=== PATIENT | female | born 1995 | race Two or more races ===

== ENCOUNTER 2023-04-04 04:19 | Emergency (ER) | payer OTHER ==
[~2023-04-04] VITALS: Ht 165.1 cm; Wt 60.8 kg
== END 2023-04-04 08:15 | disposition home or self-care (01) ==
LOC: ER 04:19
DX: J03.90 Acute tonsillitis, unspecified (principal)

== ENCOUNTER 2023-05-30 12:34 | Emergency (ER) | payer OTHER ==
[~2023-05-30] VITALS: Ht 165.1 cm; Wt 56.7 kg
[2023-05-30 14:05] LABS: PH,URINE 5.5 (5.0-8.0); URINE APPEARANCE Clear; URINE BILIRRUBIN Negative (NEGATIVE); URINE BLOOD Negative; URINE COLOR Yellow; URINE GLUCOSE Negative (NEGATIVE); URINE LEUKOCYTE Small; URINE NITRATE Negative; URINE PROTEIN 30 (NEGATIVE)
[2023-05-30 14:05] LABS: HEMATOCRIT 35.8 % (36.0-45.00); MEAN CORPUSCULAR HEMOGLOBIN 24.1 pg (27.00-32.0); MEAN CORPUSCULAR HGB CONC 33.5 g/dl (32.0-36.0); PLATELET COUNT 212 K/uL (150-450); RED BLOOD COUNT 4.98 M/uL (4.00-6.00)
[2023-05-30 14:09] LABS: URINE BACTERIA 1718.6 uL (0.0-1933); URINE EPITHELIAL CELLS 47.2 uL (0.0-38.8); URINE RBC 6.3 uL (0.0-20.8); URINE WBC 51.7 uL (0.0-23.2)
[2023-05-30 14:39] LABS: CALCIUM 9.3 mg/dL (8.5-10.1); CREATININE SERUM 0.57 mg/dL (0.55-1.02); GFR 126.3; POTASSIUM 3.76 mEq/L (3.5-5.1)
[2023-05-30 14:46] LABS: URINE CRYSTALS NEGATIVE /HPF; URINE YEAST NEGATIVE /hpf
[2023-05-30 14:47] LABS: URINE MUCUS HEAVY
== END 2023-05-30 15:45 | disposition home or self-care (01) ==
LOC: ER 12:34
PROVIDERS: General Practice
DX: R11.10 Vomiting, unspecified (principal)

== ENCOUNTER → 2023-06-22 | Emergency (ER) | payer OTHER ==
[~2023-06-22] VITALS: Ht 167.6 cm; Wt 52.2 kg
== END | disposition home or self-care (01) ==
LOC: ER 18:34
DX: Z53.21 Procedure and treatment not carried out due to patient leaving prior to being seen by health care provider (principal)

== ENCOUNTER 2023-06-30 23:47 | Emergency (ER) | payer OTHER ==
[~2023-06-30] VITALS: Ht 165.1 cm; Wt 57.2 kg
[2023-07-01 02:53] LABS: PH,URINE 6.5 (5.0-8.0); URINE APPEARANCE Cloudy; URINE BILIRRUBIN Negative (NEGATIVE); URINE BLOOD Negative; URINE COLOR Yellow; URINE GLUCOSE Negative (NEGATIVE); URINE LEUKOCYTE Trace; URINE NITRATE Negative; URINE PROTEIN Negative (NEGATIVE)
[2023-07-01 02:56] LABS: URINE BACTERIA 202.8 uL (0.0-1933); URINE EPITHELIAL CELLS 30.2 uL (0.0-38.8); URINE RBC 2.8 uL (0.0-20.8); URINE WBC 9.4 uL (0.0-23.2)
[2023-07-01 03:27] LABS: HEMATOCRIT 31.8 % (36.0-45.00); HEMOGLOBIN 10.6 g/dL (12.0-15.00); MEAN CELL VOLUME 73.5 fL (80.00-100.00); MEAN CORPUSCULAR HEMOGLOBIN 24.4 pg (27.00-32.0); MEAN CORPUSCULAR HGB CONC 33.2 g/dl (32.0-36.0); PLATELET COUNT 236 K/uL (150-450); RED BLOOD COUNT 4.32 M/uL (4.00-6.00); RED CELL DISTRIBUTION WIDTH 18.6 % (11.5-14.5)
== END 2023-07-01 04:29 ==
LOC: ER 23:47
PROVIDERS: General Practice
DX: R10.2 Pelvic and perineal pain (principal); Z33.1 Pregnant state, incidental

== ENCOUNTER 2023-09-01 05:46 | Emergency (ER) | payer OTHER ==
[~2023-09-01] VITALS: Ht 162.6 cm; Wt 52.2 kg
[2023-09-01] MEDS ORDERED: PROMETHAZINE HCL 50 MG/ML AMPUL IM STA (06:27)
[2023-09-01] MEDS ORDERED: FAMOTIDINE/PF 20 MG/2 ML VIAL IV PUSH STA (06:27)
[2023-09-01] MEDS ORDERED: DEXTROSE 5 % AND 0.9 % NACL 1,000 ML IV ONE (06:30)
[2023-09-01 08:00] LABS: HEMOGLOBIN 11.6 g/dL (12.0-15.00); MEAN CELL VOLUME 71.8 fL (80.00-100.00); MEAN CORPUSCULAR HEMOGLOBIN 23.9 pg (27.00-32.0); MEAN CORPUSCULAR HGB CONC 33.3 g/dl (32.0-36.0); RED BLOOD COUNT 4.87 M/uL (4.00-6.00); RED CELL DISTRIBUTION WIDTH 16.5 % (11.5-14.5)
[2023-09-01 08:22] LABS: ALBUMIN 4.1 gm/dL (3.4-5.0); BILIRUBIN TOTAL 0.68 mg/dL (0.3-1.2); CALCIUM 9.4 mg/dL (8.5-10.1); CREATININE SERUM 0.77 mg/dL (0.55-1.02); GFR 89.26; POTASSIUM 3.53 mEq/L (3.5-5.1); TOTAL PROTEIN 8.1 gm/dL (6.4-8.2)
[2023-09-01 08:35] LABS: PLATELET COUNT 172 K/uL (150-450)
[2023-09-01] MEDS ORDERED: ONDANSETRON HCL 2 MG/ML VIAL IV ONE (09:15)
== END 2023-09-01 11:13 | disposition home or self-care (01) ==
LOC: ER 05:46
PROVIDERS: General Practice
DX: R11.10 Vomiting, unspecified (principal); E86.0 Dehydration

== ENCOUNTER 2023-09-26 14:39 | Emergency (ER) | payer OTHER ==
[~2023-09-26] VITALS: Ht 152.4 cm; Wt 54.4 kg
[2023-09-26] MEDS ORDERED: KETOROLAC TROMETHAMINE 60 MG VIAL IM STA (16:02)
[2023-09-26 16:21] LABS: PH,URINE 5.5 (5.0-8.0); URINE APPEARANCE Cloudy; URINE BILIRRUBIN Negative (NEGATIVE); URINE BLOOD Negative; URINE COLOR Yellow; URINE GLUCOSE Negative (NEGATIVE); URINE LEUKOCYTE Moderate; URINE NITRATE Negative; URINE PROTEIN Trace (NEGATIVE); URINE UROBILINOGEN 0.2 E.U./dl
[2023-09-26 16:22] LABS: URINE BACTERIA 6575.7 uL (0.0-1933); URINE EPITHELIAL CELLS 113.1 uL (0.0-38.8); URINE RBC 5.3 uL (0.0-20.8); URINE WBC 36.1 uL (0.0-23.2)
[2023-09-26 16:33] LABS: HEMATOCRIT 35.3 % (36.0-45.00); HEMOGLOBIN 11.7 g/dL (12.0-15.00); MEAN CELL VOLUME 70.9 fL (80.00-100.00); MEAN CORPUSCULAR HEMOGLOBIN 23.5 pg (27.00-32.0); MEAN CORPUSCULAR HGB CONC 33.2 g/dl (32.0-36.0); PLATELET COUNT 188 K/uL (150-450); RED BLOOD COUNT 4.98 M/uL (4.00-6.00); RED CELL DISTRIBUTION WIDTH 17.9 % (11.5-14.5)
[2023-09-26 16:58] LABS: URINE MUCUS MODERATE
[2023-09-26 17:24] LABS: CALCIUM 9.5 mg/dL (8.5-10.1); CREATININE SERUM 0.68 mg/dL (0.55-1.02); GFR 103.03; POTASSIUM 3.71 mEq/L (3.5-5.1)
== END 2023-09-26 19:09 | disposition home or self-care (01) ==
LOC: ER 14:39
PROVIDERS: General Practice
DX: O34.80 Maternal care for other abnormalities of pelvic organs, unspecified trimester (principal); N83.291 Other ovarian cyst, right side

== ENCOUNTER 2024-02-14 19:37 | Emergency (ER) | payer OTHER ==
[~2024-02-14] VITALS: Ht 165.1 cm; Wt 49.9 kg
[~2024-02-14 19:37] MED LIST: KETO10TA2 PO
[2024-02-14] MEDS ORDERED: HYOSCYAMINE SULFATE 0.125 MG TAB.SUBL ONE (21:26)
[2024-02-14] MEDS ORDERED: KETOROLAC TROMETHAMINE 30 MG VIAL ONE (21:26)
[2024-02-14] MEDS ORDERED: FAMOtidine 200mg/20ml VIAL ONE (21:27)
[2024-02-14] MEDS ORDERED: 0.9 % SODIUM CHLORIDE 1,000 ML IV ONE (21:30)
[2024-02-14] MEDS ORDERED: FAMOtidine 10 MG/ML (4ML VIAL) IV PUSH ONE (21:30)
[2024-02-14] MEDS ORDERED: SUCRALFATE 1 G TABLET PO ONE (21:30)
[2024-02-14] MEDS ORDERED: KETOROLAC TROMETHAMINE 15 MG VIAL IV ONE (21:30)
[2024-02-14] MEDS ORDERED: HYOSCYAMINE SULFATE 0.125 MG TAB.SUBL SL ONE (21:30)
[2024-02-14 22:09] LABS: ALBUMIN 3.7 gm/dL (3.4-5.0); ALKALINE PHOSPHATASE 57 U/L (50-136); ALT/SGPT 23 U/L (12-78); AMYLASE 52 U/L (25-115); ANION GAP 10 (10.0-20.0); AST/SGOT 17 U/L (15-37); BILIRUBIN TOTAL 0.74 mg/dL (0.3-1.2); BLOOD UREA NITROGEN 12 mg/dL (7-18); BUN CREA RATIO 18 (7.0-25.0); CALCIUM 8.9 mg/dL (8.5-10.1); CARBON DIOXIDE 29 mEq/L (21-32); CHLORIDE 109 mmol/L (98-107); CREATININE SERUM 0.66 mg/dL (0.55-1.02); GFR 105.88; GLOBULINA 3.7 G/DL (2.4-3.5); GLUCOSE FASTING 90 mg/dL (65-100); LIPASE 24 U/L (13-75); OSMOLALITY SERUM 286 MOSM/KG (275-295); POTASSIUM 3.61 mEq/L (3.5-5.1); SODIUM 144 mmol/L (136-145); TOTAL PROTEIN 7.4 gm/dL (6.4-8.2)
[2024-02-14 22:09] LABS: HEMATOCRIT 37.3 % (36.0-45.00); HEMOGLOBIN 12.7 g/dL (12.0-15.00); MEAN CELL VOLUME 77.5 fL (80.00-100.00); MEAN CORPUSCULAR HEMOGLOBIN 26.3 pg (27.00-32.0); PLATELET COUNT 160 K/uL (150-450); RED BLOOD COUNT 4.82 M/uL (4.00-6.00); RED CELL DISTRIBUTION WIDTH 16.6 % (11.5-14.5)
[2024-02-14 22:15] LABS: HCG QUANTITATIVE < 1 mUI/mL (1-3)
== END 2024-02-15 04:13 | disposition home or self-care (01) ==
LOC: ER 19:38
PROVIDERS: General Practice
DX: K29.70 Gastritis, unspecified, without bleeding (principal); R10.9 Unspecified abdominal pain
CPT/HCPCS: 36415; 76700; 96365; 96366; 99284; J1885; J3490; J7030

== ENCOUNTER 2024-04-07 09:12 | Emergency (ER) | payer OTHER ==
[~2024-04-07] VITALS: Ht 165.1 cm; Wt 59.0 kg
[2024-04-07] MEDS ORDERED: KETOROLAC TROMETHAMINE 60 MG VIAL IM STA (11:03)
[2024-04-07] MEDS ORDERED: KETOROLAC TROMETHAMINE 60 MG VIAL IM ONE (11:12)
== END 2024-04-07 12:52 | disposition home or self-care (01) ==
LOC: ER 09:14
DX: M25.531 Pain in right wrist (principal)

== ENCOUNTER 2024-07-17 13:08 | Emergency (ER) | payer OTHER ==
[~2024-07-17] VITALS: Ht 165.1 cm; Wt 52.6 kg
[2024-07-17] MEDS ORDERED: KETOROLAC TROMETHAMINE 60 MG VIAL IM ONE (14:00)
[2024-07-17 14:34] LABS: HEMATOCRIT 39.9 % (36.0-45.00); HEMOGLOBIN 13.3 g/dL (12.0-15.00); MEAN CELL VOLUME 83.3 fL (80.00-100.00); MEAN CORPUSCULAR HEMOGLOBIN 27.8 pg (27.00-32.0); MEAN CORPUSCULAR HGB CONC 33.4 g/dl (32.0-36.0); PLATELET COUNT 193 K/uL (150-450); RED BLOOD COUNT 4.79 M/uL (4.00-6.00); RED CELL DISTRIBUTION WIDTH 14.8 % (11.5-14.5)
[2024-07-17 16:38] LABS: PH,URINE 6.5 (5.0-8.0); URINE APPEARANCE Turbid; URINE BILIRRUBIN Negative (NEGATIVE); URINE BLOOD Negative; URINE COLOR Yellow; URINE GLUCOSE Negative (NEGATIVE); URINE KETONE Negative (NEGATIVE); URINE LEUKOCYTE Moderate; URINE NITRATE Negative; URINE PROTEIN Negative (NEGATIVE); URINE UROBILINOGEN 0.2 E.U./dl
[2024-07-17 16:42] LABS: URINE BACTERIA 8610.8 uL (0.0-1933); URINE RBC 6.1 uL (0.0-20.8)
[2024-07-17 16:56] LABS: URINE CAST 0.14 uL (0.0-1.40); URINE EPITHELIAL CELLS > 201.7 uL (0.0-38.8)
[2024-07-17] MEDS ORDERED: CEPHALEXIN500 MG PO (18:03)
[2024-07-17] MEDS ORDERED: CEFTRIAXONE SODIUM 1,000 MG VIAL IM ONE (18:15)
== END 2024-07-17 18:19 | disposition home or self-care (01) ==
LOC: ER 13:10
PROVIDERS: General Practice
DX: R10.2 Pelvic and perineal pain (principal)